=== PATIENT | female | born 1965 | race Caucasian/White ===

== ENCOUNTER 2016-05-22 21:07 | Emergency (ER) | payer OTHER ==
[~2016-05-22] VITALS: Ht 162.6 cm; Wt 71.4 kg
[~2016-05-22 21:07] MED LIST: ALBU1AER9; BUPR150T5 PO; EPP3/2 IM; LISI5TAB3 PO; NAPR-1161 PO; PANT40TA PO; WLLXL300 PO
[2016-05-22 21:10] VITALS: TEMP 36.9; Ht 162.6 cm; Wt 71.4 kg
[2016-05-22] MEDS ORDERED: SODIUM CHLORIDE 0.9% 1000ML 1,000 ML IV STA (21:12)
[2016-05-22] MEDS ORDERED: ONDANSETRON INJ 2 MG/ML 2 ML VIAL IV STA (21:12)
[2016-05-22] MEDS ORDERED: OPTIRAY 320 IV PRN (21:30)
[2016-05-22 21:54] LABS: BASO % 0.3 %; BASO ABS # 0.03 K/uL (0-0.2); COMPLETE YES; EOS % 0.3 %; HEMATOCRIT 37.8 % (37-47); IG% 0.2 %; LYMPH % 37.5 %; LYMPH ABS # 3.39 K/uL (1.2-3.4); MEAN CELL VOLUME 86.3 fL (80-100); MEAN CORPUSCULAR HEMOGLOBIN 31.3 pg (25-34); MEAN CORPUSCULAR HGB CONC 36.2 g/dl (32-36); MEAN PLATELET VOLUME 10.2 fL (7.4-10.4); MONO % 9.3 %; NEUT % 52.4 %; PLATELET COUNT 231 K/uL (130-400); RED BLOOD COUNT 4.38 M/uL (4.2-5.4); WHITE BLOOD COUNT 9.05 K/uL (4.8-10.8)
[2016-05-22 22:04] LABS: PARTIAL THROMBOPLASTIN RATIO 1.1; PROTHROMBIN TIME (PATIENT) 10.3 SECONDS (9.0-12.0)
[2016-05-22 22:12] LABS: ALT/SGPT 26 U/L (12-78); BLOOD UREA NITROGEN 5 mg/dl (7-18); BUN/CREATININE RATIO 11.8 (10-20); CALCIUM 8.8 mg/dl (8.5-10.1); CARBON DIOXIDE 27 mmol/L (21-32); CHLORIDE 95 mmol/L (98-107); CREATININE 0.44 mg/dl (0.60-1.20); GLUCOSE 92 mg/dl (70-99); MAGNESIUM 1.9 mg/dl (1.8-2.4); POTASSIUM 3.3 mmol/L (3.5-5.1); SODIUM 131 mmol/L (136-145)
[2016-05-22 22:15] LABS: ALKALINE PHOSPHATASE 97 U/L (45-117); AST/SGOT 20 U/L (15-37)
[2016-05-22 22:31] LABS: URINE APPEARANCE CLEAR (CLEAR); URINE BILIRUBIN NEG (NEG); URINE COLOR YELLOW; URINE NITRITE NEG (NEG); UROBILINOGEN NEG (NEG)
--- NOTE | 2016-05-22 22:38 | EMERGENCY ROOM VISIT NOTE ---
History Report prepared by Fer: Hipolito Goodwin Under the Supervision of: Dr. Chin Cabral D.O. First contact with patient: 21:12 Chief Complaint: FALL Stated Complaint: FALL,ETOH History of Present Illness The patient is a 51 year old female who presents to the Emergency Room via ALS after a fall she had prior to arrival. The patient has a history of alcoholism and had been drinking for 3 days. She was dancing at her home when she fell, hit her head, and lost consciousness. The patient currently complains of a headache. The patient's HPI is limited due to intoxication. The patient also has a history of IBS. She complains of abdominal pain at this time. Source of History: patient History Limited By: intoxication Onset: prior to arrival Position: other (global) Associated Symptoms: + LOC, + abdominal pain, + headache Review of Systems The patient's ROS is limited due to intoxication. Past Medical & Surgical Medical Problems: (1) Alcohol Abuse-Unspec (2) Benign hypertension (3) Hornet/Wasp/Bee Sting Family History Patient reports no known family medical history. Social History Smoking Status: Heavy Tobacco Smoker Alcohol Use: heavy Drug Use: none Marital Status: Housing Status: lives alone Occupation Status: unemployed, disabled Current/Historical Medications Scheduled Albuterol (Proair Hfa), 2 PUFF BID PRN Bupropion HCl (Bupropion HCl Xl), 300 MG PO HS Bupropion Hcl (Bupropion Hcl Xl), 150 MG PO HS Epinephrine (Epipen), 0.3 MG IM UD Lisinopril (Zestril), 5 MG PO DAILY PRN Naproxen Sodium (Naproxen Sodium Ds), 550 MG PO BID Pantoprazole (Protonix), 40 MG PO DAILY PRN Allergies Coded Allergies: BEE STING (Unverified Allergy, Mild, itching, swelling, 01/12/16) Physical Exam Vital Signs Date Time Temp Pulse Resp B/P Pulse Ox O2 Delivery O2 Flow Rate FiO2 05/23/16 02:54 90 20 152/90 96 05/23/16 01:17 73 05/23/16 01:02 82 18 125/67 98 Room Air 05/22/16 23:41 75 18 121/69 94 Room Air 05/22/16 22:57 76 18 114/70 97 Room Air 05/22/16 22:09 71 18 128/76 92 Room Air 05/22/16 21:10 78 05/22/16 21:10 36.9 79 18 152/78 98 Room Air Physical Exam GENERAL: Patient is awake alert, intoxicated appearing and slurring her words. EYES: The pupils were dilated and minimally reactive to light. Bilateral extraocular movements intact EARS, NOSE, MOUTH AND THROAT: The nose is without any evidence of any deformity. Mucous membranes are moist tongue is midline NECK: The neck is nontender and supple. RESPIRATORY: Normal respiratory effort is noted there is no evidence of wheezing rhonchi or rales CARDIOVASCULAR: Regular rate and rhythm noted there no murmurs rubs or gallops normal S1 normal S2 GASTROINTESTINAL: The abdomen is mildly distended and soft. Diffuse tenderness to palpation but no guarding or rigidity noted. BACK: No midline tenderness or or step-off noted range of motion in flexion extension as well as rotation no signs of muscle spasm noted MUSCULOSKELETAL/EXTREMITIES: No pain or decreased range of motion in either lower extermity. There was pain and tenderness over left elbow. There was ecchymosis noted over left elbow. Right upper extremity was normal and range of motion was intact. SKIN: There is no obvious evidence of any rash. There are no petechiae, pallor or cyanosis noted. NEUROLOGIC: Patient is oriented to person place and time, strength was symmetric, moves all extremities. Medical Decision & Procedures ER Provider Diagnostic Interpretation: Radiology results as stated below per my review and radiologist interpretation: CT SCAN OF THE BRAIN WITHOUT IV CONTRAST CLINICAL HISTORY: Trauma. Fall. COMPARISON STUDY: CT of the brain dated 05/01/09. TECHNIQUE: Unenhanced axial CT scan of the brain is performed from the vertex to the skull base. Automated dose control exposure was utilized. CT DOSE: 989.51 mGy.cm FINDINGS: Brain parenchyma: The brain parenchyma is normal in appearance. There is no hemorrhage, mass effect, or evidence of acute territorial ischemia by CT criteria. Rich-white matter is preserved. No extra-axial fluid collection is seen. Ventricles, sulci, cisterns: Normal in configuration. Intracranial vasculature: There is mild atherosclerotic calcification of the cavernous carotid arteries. Calvarium: There is no depressed calvarial fracture. Sinuses and mastoids: The visualized paranasal sinuses are clear. The mastoid air cells are well pneumatized. Orbits: The bony orbits are grossly intact. IMPRESSION: No acute intracranial abnormality. Electronically signed by: Nikita Sullivan M.D. 05/22/2016 11:20 PM Dictated Date/Time: 05/22/2016 11:18 PM SINGLE VIEW CHEST CLINICAL HISTORY: Generalized abdominal pain. Fall. FINDINGS: An AP, portable, supine chest radiograph is compared to study dated 01/12/2016. The examination is degraded by portable technique and patient rotation. The heart is top normal for projection. The lungs and pleural spaces are clear. No pneumothorax is seen. The bony thorax is grossly intact. IMPRESSION: No acute cardiopulmonary abnormality. Electronically signed by: Nikita Sullivan M.D. 05/22/2016 11:11 PM Dictated Date/Time: 05/22/2016 11:[address] SCAN OF THE CERVICAL SPINE CLINICAL HISTORY: Trauma. Fall. COMPARISON STUDY: No priors. TECHNIQUE: CT scan of the cervical spine is performed from the skull base to the upper thoracic spine. Images are reviewed in the axial, sagittal, and coronal planes. IV contrast was not administered for this examination. CT DOSE: Reported separately under the concurrently performed CT scan of the brain. FINDINGS: Skeletal structures: The skeletal structures are well mineralized. There is no evidence of fracture or subluxation involving the cervical spine. Vertebral body height and alignment are maintained. The odontoid process and lateral masses are intact. There is straightening of the cervical lordosis with reversal centered at C4-C5. The atlantoaxial articulation is preserved. The spinous processes appear intact. Intervertebral discs: Mild degenerative disc space narrowing is seen at C5-C6 and C6-C7. Central canal: Tiny posterior disc osteophyte complexes at C5-C6 and C6-C7 may contribute to minimal acquired compromise of the central canal. Soft tissues: The prevertebral and paraspinous soft tissues are within normal limits. Atherosclerotic calcification is noted in the carotid bulbs. Calvarium: The visualized calvarium at the skull base appears intact. Brain parenchyma: Partially visualized brain parenchyma the skull base is within normal limits. Sinuses and mastoids: The visualized paranasal sinuses are clear. The mastoid air cells are well pneumatized. Lung apices: Clear as visualized. IMPRESSION: There is no evidence of fracture or subluxation involving the cervical spine. Electronically signed by: Nikita Sullivan M.D. 05/22/2016 11:30 PM Dictated Date/Time: 05/22/2016 11:[address] SCAN OF THE ABDOMEN AND PELVIS WITH IV CONTRAST CLINICAL HISTORY: Trauma. Fall. Intoxication. COMPARISON STUDY: Abdominal CT dated 08/27/2011. TECHNIQUE: Following the IV administration of 115 cc of Optiray 320, CT scan of the abdomen and pelvis is performed from the lung bases to the proximal femora. Images are reviewed in the axial, sagittal, and coronal planes. IV contrast was administered without complication. Automated dose control exposure was utilized. The examination is degraded by streak artifact from the patient's arms which could not be elevated above the abdomen. The examination is also modestly degraded by motion artifact. CT DOSE: 708.90 mGy.cm FINDINGS: Lung bases: The heart is normal in size and without pericardial effusion. There are scattered coronary artery calcifications. Evaluation of the lung bases is degraded by respiratory motion artifact. No airspace consolidation or pleural effusion is seen. There is dependent atelectasis. There is a small hiatal hernia. Liver: The contrast-enhanced liver is normal in size, contour, and attenuation. Focal fatty infiltration is seen adjacent to the falciform ligament. There is no intrahepatic biliary ductal dilatation. The hepatic veins and portal veins are patent. Gallbladder: Unremarkable. Spleen: Normal in size and attenuation. Pancreas: Unremarkable. Adrenal glands: Unremarkable. Kidneys: The contrast enhanced kidneys are normal in size and without hydronephrosis. The kidneys enhance symmetrically. Abdominal vasculature: The abdominal aorta is normal in course and caliber noting moderate atherosclerotic calcification. Bowel: The small bowel and colon are normal in course and caliber. The appendix is well-visualized and normal. Peritoneum: There is no intraperitoneal free air or abdominal ascites. There is a small fat-containing umbilical hernia. Lymphadenopathy: None. Pelvic viscera: The bladder is distended but otherwise normal in appearance. The uterus and adnexa are normal as visualized. Skeletal structures: No fracture is identified. No lytic or blastic lesions are seen. IMPRESSION: 1. Streak and motion degraded examination. 2. There is no evidence of solid organ injury in the abdomen or pelvis. 3. No fracture is seen. 4. No acute infectious or inflammatory findings are identified. Electronically signed by: Nikita Sullivan M.D. 05/22/2016 11:27 PM Dictated Date/Time: 05/22/2016 11:21 PM LEFT HUMERUS 2 VIEWS CLINICAL HISTORY: Fall with left arm pain. FINDINGS: AP and lateral views of the left humerus are obtained. No prior studies are available for comparison at the time of dictation. The skeletal structures are well mineralized. There is no radiographic evidence of left humeral fracture. The left shoulder and elbow joints are grossly maintained. The overlying soft tissues are within normal limits. IMPRESSION: There is no radiographic evidence of left humeral fracture. Electronically signed by: Nikita Sullivan M.D. 05/22/2016 11:08 PM Dictated Date/Time: 05/22/2016 11:07 PM LEFT ELBOW 3 VIEWS CLINICAL HISTORY: Fall with left elbow pain. FINDINGS: 3 views of the left elbow are obtained. No prior studies are available for comparison at the time of dictation. The skeletal structures are well mineralized. No fracture is seen. The joint spaces of the elbow appear well-maintained. There is no joint effusion. The overlying soft tissues are within normal limits. IMPRESSION: There is no radiographic evidence of left elbow fracture. Electronically signed by: Nikita Sullivan M.D. 05/22/2016 11:04 PM Dictated Date/Time: 05/22/2016 11:03 PM RIGHT HUMERUS 2 VIEWS CLINICAL HISTORY: Fall with right arm pain. FINDINGS: AP and lateral views of the right humerus are obtained. No prior studies are available for comparison at the time of dictation. The skeletal structures are well mineralized. There is no radiographic evidence of right humeral fracture. The shoulder and elbow joints are grossly intact. The overlying soft tissues are within normal limits. Partially imaged right lung parenchyma appears clear. IMPRESSION: There is no radiographic evidence of right humeral fracture. Electronically signed by: Nikita Sullivan M.D. 05/22/2016 11:07 PM Dictated Date/Time: 05/22/2016 11:06 PM RIGHT ELBOW 3 VIEWS CLINICAL HISTORY: Fall. Right elbow pain. FINDINGS: 3 views of the right elbow were obtained. No prior studies are available for comparison at the time of dictation. The examination is significantly degraded by suboptimal patient positioning. The skeletal structures are well mineralized. There is no radiographic evidence of acute fracture on the provided images. There is no evidence of joint effusion. The joint spaces appear maintained. The overlying soft tissues are normal as imaged. IMPRESSION: There is no radiographic evidence of right elbow fracture noting an examination degraded by suboptimal positioning. Electronically signed by: Nikita Sullivan M.D. 05/22/2016 11:06 PM Dictated Date/Time: 05/22/2016 11:04 PM Laboratory Results 05/22/16 21:42 Red Blood Count 4.38, Mean Corpuscular Volume 86.3, Mean Corpuscular Hemoglobin 31.3, Mean Corpuscular Hemoglobin Concent 36.2, Mean Platelet Volume 10.2, Neutrophils (%) (Auto) 52.4, Lymphocytes (%) (Auto) 37.5, Monocytes (%) (Auto) 9.3, Eosinophils (%) (Auto) 0.3, Basophils (%) (Auto) 0.3, Neutrophils # (Auto) 4.74, Lymphocytes # (Auto) 3.39, Monocytes # (Auto) 0.84, Eosinophils # (Auto) 0.03, Basophils # (Auto) 0.03 05/22/16 21:42 Test 05/22/16 21:42 05/22/16 22:10 White Blood Count 9.05 K/uL (4.8-10.8) Red Blood Count 4.38 M/uL (4.2-5.4) Hemoglobin 13.7 g/dL (12.0-16.0) Hematocrit 37.8 % (37-47) Mean Corpuscular Volume 86.3 fL (80-100) Mean Corpuscular Hemoglobin 31.3 pg (25-34) Mean Corpuscular Hemoglobin Concent 36.2 g/dl (32-36) Platelet Count 231 K/uL (130-400) Mean Platelet Volume 10.2 fL (7.4-10.4) Neutrophils (%) (Auto) 52.4 % Lymphocytes (%) (Auto) 37.5 % Monocytes (%) (Auto) 9.3 % Eosinophils (%) (Auto) 0.3 % Basophils (%) (Auto) 0.3 % Neutrophils # (Auto) 4.74 K/uL (1.4-6.5) Lymphocytes # (Auto) 3.39 K/uL (1.2-3.4) Monocytes # (Auto) 0.84 K/uL (0.11-0.59) Eosinophils # (Auto) 0.03 K/uL (0-0.5) Basophils # (Auto) 0.03 K/uL (0-0.2) RDW Standard Deviation 41.3 fL (36.4-46.3) RDW Coefficient of Variation 13.0 % (11.5-14.5) Immature Granulocyte % (Auto) 0.2 % Immature Granulocyte # (Auto) 0.02 K/uL (0.00-0.02) Prothrombin Time 10.3 SECONDS (9.0-12.0) Prothromb Time International Ratio 1.0 (0.9-1.1) Activated Partial Thromboplast Time 28.4 SECONDS (21.0-31.0) Partial Thromboplastin Ratio 1.1 Anion Gap 9.0 mmol/L (3-11) Est Creatinine Clear Calc Drug Dose 146.6 ml/min Estimated GFR () 135.5 Estimated GFR (Non- 116.9 BUN/Creatinine Ratio 11.8 (10-20) Calcium Level 8.8 mg/dl (8.5-10.1) Magnesium Level 1.9 mg/dl (1.8-2.4) Total Bilirubin 0.3 mg/dl (0.2-1) Direct Bilirubin < 0.1 mg/dl (0-0.2) Aspartate Amino Transf (AST/SGOT) 20 U/L (15-37) Alanine Aminotransferase (ALT/SGPT) 26 U/L (12-78) Alkaline Phosphatase 97 U/L (45-117) Total Protein 7.6 gm/dl (6.4-8.2) Albumin 3.9 gm/dl (3.4-5.0) Lipase 170 U/L (73-393) Ethyl Alcohol mg/dL 300.0 mg/dl (0-3) Urine Color YELLOW Urine Appearance CLEAR (CLEAR) Urine pH 5.0 (4.5-7.5) Urine Specific [place] 1.000 (1.000-1.030) Urine Protein NEG (NEG) Urine Glucose (UA) NEG (NEG) Urine Ketones NEG (NEG) Urine Occult Blood NEG (NEG) Urine Nitrite NEG (NEG) Urine Bilirubin NEG (NEG) Urine Urobilinogen NEG (NEG) Urine Leukocyte Esterase NEG (NEG) Urine Opiates Screen NEG (NEG) Urine Methadone, Qualitative NEG (NEG) Urine Barbiturates NEG (NEG) Urine Phencyclidine (PCP) Level NEG (NEG) Ur Amphetamine/Methamphetamine NEG (NEG) MDMA (Ecstasy) Screen NEG (NEG) Urine Benzodiazepines Screen NEG (NEG) Urine Cocaine Metabolite NEG (NEG) Urine Marijuana (THC) NEG (NEG) Laboratory results per my review. Medications Administered Medications (Trade) Dose Ordered Sig/Damaris Route Start Time Stop Time Status Last Admin Dose Admin Sodium Chloride (Nss 1000ml) 1,000 ml @ 999 mls/hr Q1H1M STAT IV 05/22/16 21:12 05/22/16 22:12 DC 05/22/16 22:07 999 MLS/HR Ondansetron HCl (Zofran Inj) 4 mg NOW STAT IV 05/22/16 21:12 05/22/16 21:14 DC 05/22/16 22:07 4 MG ED Course 2110: The patient was evaluated in room C4. A complete history and physical examination were performed. 2111: Ordered Zofran Inj 4 mg IV, NSS 1000 ml @ 999 mls/hr IV. 2121: At this time, the patient tried to get up and walk. She fell in the room and hit her right elbow. 0110: Upon reevaluation, the patient is resting. I discussed the results and treatment plan with her. She verbalized agreement of the treatment plan. The patient was discharged home. Medical Decision Differential diagnosis: Etiologies such as fracture, dislocation, intra-abdominal, pneumothorax, intrathoracic , intracranial, neurologic, as well as other traumatic pathologies were entertained. Nursing notes reviewed. Additional history is obtained from the prehospital personnel. The patient is a 51-year-old female who presented to the emergency department after a fall. The patient has a history of alcohol use who is clinically intoxicated upon arrival to the emergency department. There was a history of trauma so a trauma workup was undertaken. She did have a headache as well as signs of injury to the left upper extremity. She also injured her right upper extremity after a fall while she was trying to get back into her bed while in the emergency department. I discussed the patient's laboratory and radiographic studies with her. She was reevaluated multiple times. She was no longer clinically intoxicated on final reevaluation he was able to be discharged with a family member. She was encouraged to rest and avoid any strenuous activity. She was also encouraged to continue all medications as prescribed. She's also encouraged to avoid any further alcoholic beverages. She was also encouraged not to operate any heavy machinery including driving a vehicle for next 24 hours. She was also encouraged return to the emergency apartment immediately if symptoms change worsen or the need arises. Impression Primary Impression: Fall Additional Impressions: Closed head injury Alcohol intoxication Left elbow contusion Contusion of right elbow Abdominal pain Scribe Attestation The scribe's documentation has been prepared under my direction and personally reviewed by me in its entirety. I confirm that the note above accurately reflects all work, treatment, procedures, and medical decision making performed by me. Departure Information Dispostion Home / Self-Care Referrals Redd Fowler M.D. (PCP) Forms HOME CARE DOCUMENTATION FORM, IMPORTANT VISIT INFORMATION Patient Instructions Bruises Contusions, ED Alcohol Intoxication, ED Head Injury Closed, [facility] Additional Instructions Call your family in the morning to schedule a follow-up appointment. Rest and avoid any strenuous activity. Continue using Motrin and Tylenol as directed for pain. Do not drink any further alcohol. Your alcohol was very elevated in the emergency department. You should avoid operating any heavy machinery including driving a vehicle for next 24 hours. Problem Qualifiers Primary Impression: Fall Encounter type: initial encounter Qualified Codes: W19.XXXA - Unspecified fall, initial encounter Additional Impressions: Closed head injury Encounter type: initial encounter Qualified Codes: S09.90XA - Unspecified injury of head, initial encounter Alcohol intoxication Complication of substance-induced condition: uncomplicated Qualified Codes: F10.120 - Alcohol abuse with intoxication, uncomplicated Contusion of right elbow Encounter type: initial encounter Qualified Codes: S50.01XA - Contusion of right elbow, initial encounter Abdominal pain Abdominal location: generalized Qualified Codes: R10.84 - Generalized abdominal pain
[2016-05-22 22:43] LABS: MANUAL MICROSCOPIC REQUIRED? NO; REVIEW REQ? NO
--- NOTE | 2016-05-22 23:05 | DIAGNOSTIC IMAGING REPORT ---
LEFT ELBOW 3 VIEWS CLINICAL HISTORY: Fall with left elbow pain. FINDINGS: 3 views of the left elbow are obtained. No prior studies are available for comparison at the time of dictation. The skeletal structures are well mineralized. No fracture is seen. The joint spaces of the elbow appear well-maintained. There is no joint effusion. The overlying soft tissues are within normal limits. IMPRESSION: There is no radiographic evidence of left elbow fracture. Electronically signed by: Nikita Sullivan M.D. 05/22/2016 11:04 PM Dictated Date/Time: 05/22/2016 11:03 PM
--- NOTE | 2016-05-22 23:07 | DIAGNOSTIC IMAGING REPORT ---
RIGHT ELBOW 3 VIEWS CLINICAL HISTORY: Fall. Right elbow pain. FINDINGS: 3 views of the right elbow were obtained. No prior studies are available for comparison at the time of dictation. The examination is significantly degraded by suboptimal patient positioning. The skeletal structures are well mineralized. There is no radiographic evidence of acute fracture on the provided images. There is no evidence of joint effusion. The joint spaces appear maintained. The overlying soft tissues are normal as imaged. IMPRESSION: There is no radiographic evidence of right elbow fracture noting an examination degraded by suboptimal positioning. Electronically signed by: Nikita Sullivan M.D. 05/22/2016 11:06 PM Dictated Date/Time: 05/22/2016 11:04 PM
--- NOTE | 2016-05-22 23:08 | DIAGNOSTIC IMAGING REPORT ---
RIGHT HUMERUS 2 VIEWS CLINICAL HISTORY: Fall with right arm pain. FINDINGS: AP and lateral views of the right humerus are obtained. No prior studies are available for comparison at the time of dictation. The skeletal structures are well mineralized. There is no radiographic evidence of right humeral fracture. The shoulder and elbow joints are grossly intact. The overlying soft tissues are within normal limits. Partially imaged right lung parenchyma appears clear. IMPRESSION: There is no radiographic evidence of right humeral fracture. Electronically signed by: Nikita Sullivan M.D. 05/22/2016 11:07 PM Dictated Date/Time: 05/22/2016 11:06 PM
--- NOTE | 2016-05-22 23:09 | DIAGNOSTIC IMAGING REPORT ---
LEFT HUMERUS 2 VIEWS CLINICAL HISTORY: Fall with left arm pain. FINDINGS: AP and lateral views of the left humerus are obtained. No prior studies are available for comparison at the time of dictation. The skeletal structures are well mineralized. There is no radiographic evidence of left humeral fracture. The left shoulder and elbow joints are grossly maintained. The overlying soft tissues are within normal limits. IMPRESSION: There is no radiographic evidence of left humeral fracture. Electronically signed by: Nikita Sullivan M.D. 05/22/2016 11:08 PM Dictated Date/Time: 05/22/2016 11:07 PM
--- NOTE | 2016-05-22 23:12 | DIAGNOSTIC IMAGING REPORT ---
SINGLE VIEW CHEST CLINICAL HISTORY: Generalized abdominal pain. Fall. FINDINGS: An AP, portable, supine chest radiograph is compared to study dated 01/12/2016. The examination is degraded by portable technique and patient rotation. The heart is top normal for projection. The lungs and pleural spaces are clear. No pneumothorax is seen. The bony thorax is grossly intact. IMPRESSION: No acute cardiopulmonary abnormality. Electronically signed by: Nikita Sullivan M.D. 05/22/2016 11:11 PM Dictated Date/Time: 05/22/2016 11:10 PM
--- NOTE | 2016-05-22 23:22 | DIAGNOSTIC IMAGING REPORT ---
CT SCAN OF THE BRAIN WITHOUT IV CONTRAST CLINICAL HISTORY: Trauma. Fall. COMPARISON STUDY: CT of the brain dated 05/01/09. TECHNIQUE: Unenhanced axial CT scan of the brain is performed from the vertex to the skull base. Automated dose control exposure was utilized. CT DOSE: 989.51 mGy.cm FINDINGS: Brain parenchyma: The brain parenchyma is normal in appearance. There is no hemorrhage, mass effect, or evidence of acute territorial ischemia by CT criteria. Rich-white matter is preserved. No extra-axial fluid collection is seen. Ventricles, sulci, cisterns: Normal in configuration. Intracranial vasculature: There is mild atherosclerotic calcification of the cavernous carotid arteries. Calvarium: There is no depressed calvarial fracture. Sinuses and mastoids: The visualized paranasal sinuses are clear. The mastoid air cells are well pneumatized. Orbits: The bony orbits are grossly intact. IMPRESSION: No acute intracranial abnormality. Electronically signed by: Nikita Sullivan M.D. 05/22/2016 11:20 PM Dictated Date/Time: 05/22/2016 11:18 PM
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
--- NOTE | 2016-05-22 23:31 | DIAGNOSTIC IMAGING REPORT ---
CT SCAN OF THE CERVICAL SPINE CLINICAL HISTORY: Trauma. Fall. COMPARISON STUDY: No priors. TECHNIQUE: CT scan of the cervical spine is performed from the skull base to the upper thoracic spine. Images are reviewed in the axial, sagittal, and coronal planes. IV contrast was not administered for this examination. CT DOSE: Reported separately under the concurrently performed CT scan of the brain. FINDINGS: Skeletal structures: The skeletal structures are well mineralized. There is no evidence of fracture or subluxation involving the cervical spine. Vertebral body height and alignment are maintained. The odontoid process and lateral masses are intact. There is straightening of the cervical lordosis with reversal centered at C4-C5. The atlantoaxial articulation is preserved. The spinous processes appear intact. Intervertebral discs: Mild degenerative disc space narrowing is seen at C5-C6 and C6-C7. Central canal: Tiny posterior disc osteophyte complexes at C5-C6 and C6-C7 may contribute to minimal acquired compromise of the central canal. Soft tissues: The prevertebral and paraspinous soft tissues are within normal limits. Atherosclerotic calcification is noted in the carotid bulbs. Calvarium: The visualized calvarium at the skull base appears intact. Brain parenchyma: Partially visualized brain parenchyma the skull base is within normal limits. Sinuses and mastoids: The visualized paranasal sinuses are clear. The mastoid air cells are well pneumatized. Lung apices: Clear as visualized. IMPRESSION: There is no evidence of fracture or subluxation involving the cervical spine. Electronically signed by: Nikita Sullivan M.D. 05/22/2016 11:30 PM Dictated Date/Time: 05/22/2016 11:20 PM
[2016-05-23 00:15] LABS: BENZODIAZEPINE, URINE NEG (NEG); COCAINE,URINE NEG (NEG); PHENCYCLIDINE, URINE NEG (NEG)
[2016-05-23 02:54] VITALS: BP 152/90; PULSE 90; O2SAT 96
== END 2016-05-23 02:57 | disposition home or self-care (01) ==
LOC: C.EDC 21:08
DX: S09.90XA Unspecified injury of head, initial encounter (principal); F10.220 Alcohol dependence with intoxication, uncomplicated; S50.01XA Contusion of right elbow, initial encounter; S50.02XA Contusion of left elbow, initial encounter; R10.84 Generalized abdominal pain; I10 Essential (primary) hypertension; K58.9 Irritable bowel syndrome, unspecified; Z79.899 Other long term (current) drug therapy; F17.200 Nicotine dependence, unspecified, uncomplicated; W19.XXXA Unspecified fall, initial encounter

== ENCOUNTER 2017-03-05 20:54 | Emergency (ER) | payer OTHER ==
[~2017-03-05] VITALS: Ht 162.6 cm; Wt 71.4 kg
[2017-03-05 21:05] VITALS: TEMP 37.1; Ht 162.6 cm; Wt 71.4 kg
[2017-03-05] MEDS ORDERED: VNTHFA/IN INH (21:29)
[2017-03-05] MEDS ORDERED: SNG10 PO (21:29)
[2017-03-05] MEDS ORDERED: OPTOPS OPB (21:29)
[2017-03-05] MEDS ORDERED: LSN/10125 PO (21:29)
[2017-03-05] MEDS ORDERED: NAPR1TAB9 PO (21:30)
[2017-03-05] MEDS ORDERED: CEPHALEXIN MONOHYDRATE 250 MG CAP PO ONE (21:30)
[2017-03-05] MEDS ORDERED: ERYTHROMYCIN OP OINT 1 GM PKT OP ONE (21:30)
[2017-03-05] MEDS ORDERED: MULT-916 PO (21:31)
[2017-03-05] MEDS ORDERED: CEPH500C PO (21:36)
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
[2017-03-05 22:12] VITALS: BP 136/82; PULSE 81; O2SAT 96
== END 2017-03-05 22:13 | disposition home or self-care (01) ==
LOC: EDBD 20:54 → C.EDA 20:55
DX: H57.8 Other specified disorders of eye and adnexa (principal); L02.31 Cutaneous abscess of buttock; W19.XXXA Unspecified fall, initial encounter; F17.200 Nicotine dependence, unspecified, uncomplicated; I10 Essential (primary) hypertension

== ENCOUNTER 2017-03-30 23:28 | Emergency (ER) | payer OTHER ==
[~2017-03-30] VITALS: Ht 162.6 cm; Wt 54.5 kg
[~2017-03-30 23:28] MED LIST changes: -ALBU1AER9; -BUPR150T5 PO; +CEPH500C PO; -EPP3/2 IM; -LISI5TAB3 PO; +LSN/10125 PO; +MULT-916 PO; -NAPR-1161 PO; +NAPR1TAB9 PO; +OPTOPS OPB; -PANT40TA PO; +SNG10 PO; +VNTHFA/IN INH; -WLLXL300 PO
[2017-03-30 23:31] VITALS: TEMP 36.8; Ht 162.6 cm; Wt 54.5 kg
[2017-03-30] MEDS ORDERED: SULF800T23 PO (23:50)
[2017-03-30] MEDS ORDERED: CEPH500C2 PO (23:54)
--- NOTE | 2017-03-30 23:59 | EMERGENCY ROOM VISIT NOTE ---
History First contact with patient: 23:37 Chief Complaint: SWELLING TO EXTREMITY Stated Complaint: SWOLLEN LEG History of Present Illness The patient is a 52 year old female who presents to the Emergency Room with complaints of buttock pain and swelling for the past week. Patient was seen here weeks ago and started on antibiotic for infected boil. Patient has been touching the area. She thinks it's swollen. Patient is highly intoxicated. She has not been taking her antibiotics as directed. Patient denies chest pain , dyspnea, fevers, vomiting, diarrhea, leg swelling. Despite what the triage note states she does not believe her legs are swollen. No drug use per patient. Review of Systems See HPI for pertinent positives & negatives. A total of 10 systems reviewed and were otherwise negative. Past Medical/Surgical History Medical Problems: (1) Alcohol Abuse-Unspec (2) Benign hypertension (3) Hornet/Wasp/Bee Sting Family History Patient reports no known family medical history. Social History Smoking Status: Current Every Day Smoker Alcohol Use: heavy Drug Use: none Marital Status: Housing Status: lives alone Occupation Status: unemployed, disabled Current/Historical Medications Scheduled Albuterol Hfa (Ventolin Hfa), 2 PUFFS INH QID Cephalexin Monohydrate (Keflex), 500 MG PO QID Hctz/Lisinopril (Lisinopril/Hctz 10/12.5 Mg), 1 TAB PO DAILY Montelukast Sod (Montelukast Sodium), 10 MG PO DAILY Multiple Vitamins W/ Minerals (Multivitamin Adults 50+), 1 TAB PO DAILY Sulfa/Trimethoprim (Bactrim Ds 800MG/160MG), 1 TAB PO BID Scheduled PRN Cromolyn Sodium (Ophth) (Opticrom Oph), 1 DROP OPB QID PRN for Allergy Symptoms Naproxen (Aleve), 220 MG PO UD PRN for Pain Physical Exam Vital Signs Date Time Temp Pulse Resp B/P (MAP) Pulse Ox O2 Delivery O2 Flow Rate FiO2 03/30/17 23:31 36.8 90 20 139/90 96 Room Air Physical Exam VITALS: Vitals are noted on the nurse's note and reviewed by myself. Vital signs stable. GENERAL: White female with EtOH odor who appears intoxicated, in no acute distress, nondiaphoretic, well-developed well-nourished. SKIN: Capillary reflex less than 2 seconds. HEENT: Normocephalic. PERRLA. Conjunctiva injected EOMI. Nares patent. Mucous membranes moist. Neck is supple without nuchal rigidity. HEART: Regular rate and rhythm LUNGS: Clear to auscultation bilaterally without wheezes, rales or rhonchi. No retractions or accessory muscle use. ABDOMEN: Positive bowel sounds x 4. Normal tympanic percussion. Soft, nontender, without masses or organomegaly. Smith sign negative. No guarding or rebound tenderness. Buttocks exam: 1 cm x 1 cm boil with surrounding erythema that is not fluctuant. No palpable abscess. Patient keeps on touching the area even while I am examining her. MUSCULOSKELETAL: No gross musculoskeletal defects. No pedal edema. No calf tenderness. NEURO: Patient was alert and oriented to person place and time. Normal sensation to light and sharp touch. No focal neurological deficits. Medical Decision & Procedures ED Course Prior records reviewed and summarized as above. Triage Nursing notes reviewed. Additional history obtained from friend. The patient's history was concerning for swelling and redness of the skin. Differential diagnosis: Etiologies such as cellulitis, abscess, MRSA infection, necrotizing fasciitis , dermatitis, drug eruption, as well as others were entertained.. Physical examination: The physical examination was consistent with infected boil with surrounding cellulitis ER treatment provided: Wound care, Keflex and Bactrim On reassessment the patient felt better. Diagnostics interpreted by me: Deferred This appears to be isolated boil with minimal surrounding cellulitis. Patient has been squeezing and touching the area. She has been drinking alcohol daily and not been taking her antibiotics. She was strongly encouraged to take the antibiotics as prescribed and to stop taking alcohol. She was informed to sit on a donut to help alleviate some of the pain to the area. She was offered information on rehabilitation again and declined. She is with her friend who is driving. She states she'll follow up in a few days with her family care doctor in the take the medications as directed. She states she'll quit drinking alcohol and take antiemetics as directed. She is advised to return to the ER immediately for fevers, vomiting, increasing swelling, worsening signs or symptoms or as needed. Patient had no palpable abscess. No pilonidal abscess. No lymphangitis.. She is afebrile and nontoxic. By the evaluation outlined above emergent etiologies such as abscess, necrotizing fasciitis, as well as others were deemed relatively unlikely. The pt and friend informed about the findings as listed above. All questions were answered and pleased with the treatment. Return instructions were outlined and the patient was discharged in stable condition. Outpatient prescription management: Keflex, Bactrim Referral: The patient was referred back to primary care physician for follow-up in 2 to 3 days for a recheck of the current condition. Medical Decision As above Medication Reconcilliation Current Medication List: was personally reviewed by me Blood Pressure Screening Patient's blood pressure: Normal blood pressure Impression Primary Impression: Cellulitis of buttock Additional Impression: Boil, buttock Departure Information Dispostion Home / Self-Care Condition GOOD Prescriptions Sulfa/Trimethoprim (Bactrim Ds 800MG/160MG) Tab 1 TAB PO BID for 9 Days, #18 TAB Prov: Mame Lima ., JODI 03/30/17 Forms WORK / SCHOOL INSTRUCTIONS, HOME CARE DOCUMENTATION FORM, IMPORTANT VISIT INFORMATION Patient Instructions Cellulitis - [facility], Alcohol Abuse - [facility], [facility], ED Staph Infec Abx Tx Only Additional Instructions DO NOT drive, drink alcohol, operate machinery, or perform dangerous activities today. You were given medications in the ER that can affect your ability to safely function or operate a vehicle. Strongly recommend that you stop drinking alcohol and take antibiotics as directed. Recommend that you seek help for your alcohol drinking problem. Antibiotic ointment and bandage to the areas until healed. Follow up with family doctor or return for any signs of infection (increasing redness, swelling , drainage, or fever). Keep covered when in sun until fully healed then SPF 50 or higher until scar healed. Cephalexin(Keflex) 500mg: Take one pill four times daily for 10 days for your skin infection. All antibiotics can cause diarrhea. If this occurs and you feel worse or it does not resolve in 1-2 days follow up with your doctor or return to the Emergency Department as this could be signs of serious underlying problems. Any medication can cause an allergic reaction, stop the pills immediately and return to the ER for rash, hives, breathing difficulties, or swelling. Trimethoprim-Sulfamethoxazole(Bactrim DS): Take one pill twice daily for 10 days for your skin infection. All antibiotics can cause diarrhea. If this occurs and you feel worse or it does not resolve in 1-2 days follow up with your doctor or return to the Emergency Department as this could be signs of serious underlying problems. Any medication can cause an allergic reaction, stop the pills immediately and return to the ER for rash, hives, breathing difficulties, or swelling. Ibuprofen(Motrin, Advil) may be used for fever or pain. Use 600mg every six hours as needed. Take with food. Avoid using more than 2400mg in a 24 hour period. Do not use 2400mg per day for more than three consecutive days without physician direction. Prolonged inappropriate use can lead to stomach upset or ulcers. (AND/OR) Acetaminophen(Tylenol) may be used for fever or pain. Use 1000mg every six hours as needed. Avoid using more than 3000mg in a 24 hour period. Warm compresses to the affected area 4 times daily for 15-20 minutes. Rest and drink plenty of fluids. Continue current medications. Return to the ER for severe pain, persistent fevers, spreading redness, or any worsening of your condition. Follow up with your primary physician within 2-3 days for a recheck of the current condition. Problem Qualifiers
[2017-03-31] MEDS ORDERED: CEPHALEXIN 500MG HOME PACK 1 EA BTL PO ONE
[2017-03-31] MEDS ORDERED: SEPTRA DS HOME PACK 1 EA VIAL PO ONE
[2017-03-31] MEDS ORDERED: CALC500C3 PO (00:05)
[2017-03-31 00:25] VITALS: BP 143/95; PULSE 76; O2SAT 95
== END 2017-03-31 00:26 | disposition home or self-care (01) ==
LOC: C.EDB 23:29 → C.EDC 03-31 00:26
DX: L03.317 Cellulitis of buttock (principal); L02.32 Furuncle of buttock; I10 Essential (primary) hypertension; F17.200 Nicotine dependence, unspecified, uncomplicated; Z79.899 Other long term (current) drug therapy